=== PATIENT | male | born 1960 | race Caucasian/White ===

== ENCOUNTER 2019-09-25 11:12 | Emergency (ER) | payer MEDICARE ==
[~2019-09-25] VITALS: Ht 172.7 cm; Wt 151.6 kg
[2019-09-25 12:05] LABS: BASOPHILS # (AUTO) 0.1 X10'3 (0-0.2); BASOPHILS % (AUTO) 1.4 % (0-1); EOSINOPHILS # (AUTO) 0.2 X10'3 (0-0.9); EOSINOPHILS % (AUTO) 3.6 % (0-6); HEMATOCRIT 43.5 % (42.0-52.0); HEMOGLOBIN 14.1 g/dl (14.0-17.9); LYMPHOCYTES # (AUTO) 1.2 X10'3 (1.1-4.8); LYMPHOCYTES % (AUTO) 23.6 % (21-51); MEAN CORPUSCULAR HEMOGLOBIN 30.5 PG (27.0-31.0); MEAN CORPUSCULAR HGB CONC 32.5 g/dL (33.0-36.5); MEAN CORPUSCULAR VOLUME 93.8 FL (78-98); MEAN PLATELET VOLUME 8.2 FL (7.4-10.4); MONOCYTES # (AUTO) 0.6 X10'3 (0-0.9); MONOCYTES % (AUTO) 10.7 % (2-12); NEUTROPHILS # (AUTO) 3.2 X10'3 (1.8-7.7); NEUTROPHILS % (AUTO) 60.7 % (42-75); PLATELET COUNT 255 X10'3 (140-440); RED BLOOD COUNT 4.63 X10'6 (4.70-6.10); RED CELL DISTRIBUTION WIDTH 17.1 % (11.5-14.5); WHITE BLOOD COUNT 5.2 X10'3 (4.5-11.0)
[2019-09-25 12:24] LABS: ALANINE AMINOTRANSFERASE 12 U/L (12-78); ALBUMIN 3.7 G/DL (3.4-5.0); ALBUMIN/GLOBULIN RATIO 0.9 (1.1-1.5); ALKALINE PHOSPHATASE 132 IU/L (46-116); ANION GAP 10 (8-16); ASPARTATE AMINO TRANSFERASE 20 U/L (10-37); BILIRUBIN,TOTAL 2.1 MG/DL (0.1-1.0); BLOOD UREA NITROGEN 15 MG/DL (7-18); BUN/CREATININE RATIO 11.1 (5.4-32.0); CALCIUM 9.1 MG/DL (8.5-10.1); CHLORIDE 104 MMOL/L (99-107); CREATININE 1.35 MG/DL (0.60-1.10); GLUCOSE 93 MG/DL (70-104); POTASSIUM 4.1 MMOL/L (3.5-5.1); SODIUM 139 MMOL/L (135-145); TOTAL CARBON DIOXIDE 25.2 MMOL/L (24-32); TOTAL PROTEIN 7.7 G/DL (6.4-8.2); eGFR 54 ML/MIN
[2019-09-25 12:28] LABS: LIPASE 142 U/L (73-393)
[2019-09-25 12:29] LABS: CLARITY,URINE CLEAR (Clear); COLOR,URINE YELLOW (Yellow); GLUCOSE, URINE NEGATIVE (Neg); KETONES,URINE NEGATIVE (Neg); LEUKOCYTE ESTERASE ,URINE NEGATIVE (Neg); NITRITES, URINE NEGATIVE (Neg); OCCULT BLOOD,URINE NEGATIVE (Neg); PROTEIN,URINE NEGATIVE (Neg)
[2019-09-25 12:30] LABS: UA COLLECTION TYPE URINAL
[2019-09-25] MEDS ORDERED: albumin (human) 25% 100 ML IV solution IV ONE (12:50)
[2019-09-25] MEDS ORDERED: furosemide 10 MG/1 ML 10ml inj IV ONE (13:45)
[2019-09-25 14:41] VITALS: BP 120/89
[2019-09-25 14:55] LABS: ALBUMIN,BODY FLUID 2.3 G/DL; LDH,BODY FLUID 79 U/L; TOTAL PROTEIN,BODY FLUID 3.9 G/DL
[2019-09-25 15:08] LABS: BF MESOTHELIAL CELLS FEW; BF RBC COUNT 130 /CU MM; BF WBC COUNT 360 /CU MM (0-1000); BFAPPEAR CLEAR; BFCOLOR YELLOW; BFVOLUME 65 ML; EOSINOPHILS,BODY FLUID 1 %; LYMPHOCYTES,BODY FLUID 55 %; MONOCYTES,BODY FLUID 8 %; NEUTROPHILS,BODY FLUID 36 %
== END 2019-09-25 15:51 | disposition home or self-care (01) ==
LOC: ER 11:12
DX: R18.8 Other ascites (principal); I10 Essential (primary) hypertension; E11.9 Type 2 diabetes mellitus without complications; Z72.89 Other problems related to lifestyle; Z88.8 Allergy status to other drugs, medicaments and biological substances
CPT/HCPCS: 36415; 49083; 80053; 81003; 82042; 83615; 83690; 83880; 84157; 84484; 85025; 85610; 87070; 89051; 96365; 96375; 99285; J1940; P9047

== ENCOUNTER 2020-02-25 07:29 | Day surgery (SDC) | payer MEDICARE ==
[~2020-02-25] VITALS: Ht 172.7 cm; Wt 128.3 kg
[2020-02-25] VITALS (11 sets, daily range): BP systolic 93–111; BP diastolic 56–73
[2020-02-25] MEDS ORDERED: GLIP-20 PO (09:09)
[2020-02-25] MEDS ORDERED: AMLO2.5T2 PO (09:09)
[2020-02-25] MEDS ORDERED: SILD20TA PO (09:10)
[2020-02-25] MEDS ORDERED: METF500T PO (09:12)
[2020-02-25] MEDS ORDERED: FURO40TA4 PO (09:14)
[2020-02-25] MEDS ORDERED: SPIR25TA5 PO (09:14)
[2020-02-25] MEDS ORDERED: FURO-150 PO (09:16)
[2020-02-25] MEDS: albumin 25% 100mL bottle x 1 IV PRN ×3 (09:37→11:01)
[2020-02-25 11:08] LABS: GLUCOSE,BODY FLUID 92 MG/DL; LDH,BODY FLUID 123 U/L; TOTAL PROTEIN,BODY FLUID 4.8 G/DL
[2020-02-25 11:50] LABS: BFAPPEAR CLEAR
[2020-02-25 11:51] LABS: BF MESOTHELIAL CELLS FEW; BF RBC COUNT 219 /CU MM; BF WBC COUNT 274 /CU MM (0-1000); BFCOLOR YELLOW; BFVOLUME 50 ML; LYMPHOCYTES,BODY FLUID 62 %; MONOCYTES,BODY FLUID 33 %; NEUTROPHILS,BODY FLUID 5 %
[2020-02-25 11:55] LABS: OTHER CELLS,BODY FLUID MACROPHAGES
== END 2020-02-25 11:40 | disposition home or self-care (01) ==
LOC: SSTAY O 07:29
PROVIDERS: ATTEND Radiology Vascular & Interventional Radiology
DX: R18.8 Other ascites (principal); I10 Essential (primary) hypertension; I27.20 Pulmonary hypertension, unspecified; E11.9 Type 2 diabetes mellitus without complications; Z72.89 Other problems related to lifestyle; Z88.8 Allergy status to other drugs, medicaments and biological substances; Z79.899 Other long term (current) drug therapy
CPT/HCPCS: 49083; 82945; 83615; 84157; 87070; 89051; P9047

== ENCOUNTER 2020-05-29 06:34 | Day surgery (SDC) | payer MEDICARE ==
[2020-05-29] VITALS (12 sets, daily range): BP systolic 79–136; BP diastolic 54–90
[~2020-05-29] VITALS: Ht 172.7 cm; Wt 129.7 kg
[~2020-05-29 06:34] MED LIST: AMLO2.5T2 PO; FURO-150 PO; FURO40TA4 PO; GLIP-20 PO; METF500T PO; SILD20TA PO; SPIR25TA5 PO
[2020-05-29] MEDS: albumin 25% 100mL bottle x 1 IV PRN ×4 (08:42→10:54)
== END 2020-05-29 12:15 | disposition home or self-care (01) ==
LOC: SSTAY O 06:34
PROVIDERS: ATTEND Radiology Diagnostic Radiology
DX: R18.8 Other ascites (principal); I10 Essential (primary) hypertension; E11.9 Type 2 diabetes mellitus without complications; I27.20 Pulmonary hypertension, unspecified; G47.33 Obstructive sleep apnea (adult) (pediatric); Z72.89 Other problems related to lifestyle; Z88.8 Allergy status to other drugs, medicaments and biological substances; Z79.899 Other long term (current) drug therapy; Z79.84 Long term (current) use of oral hypoglycemic drugs
CPT/HCPCS: 49083; P9047

== ENCOUNTER 2020-06-15 06:54 | Day surgery (SDC) | payer MEDICARE ==
[2020-06-15] VITALS (17 sets, daily range): BP systolic 81–127; BP diastolic 50–76
[~2020-06-15] VITALS: Ht 172.7 cm; Wt 124.2 kg
[2020-06-15] MEDS: albumin 25% 100mL bottle x 1 IV PRN ×4 (08:50→10:04)
== END 2020-06-15 12:17 | disposition home or self-care (01) ==
LOC: SSTAY O 06:54
PROVIDERS: ATTEND Radiology Vascular & Interventional Radiology
DX: R18.8 Other ascites (principal); I10 Essential (primary) hypertension; I27.20 Pulmonary hypertension, unspecified; E11.9 Type 2 diabetes mellitus without complications; Z72.89 Other problems related to lifestyle; Z88.8 Allergy status to other drugs, medicaments and biological substances; Z91.013 Allergy to seafood; Z79.899 Other long term (current) drug therapy; Z79.84 Long term (current) use of oral hypoglycemic drugs
CPT/HCPCS: 49083; P9047

== ENCOUNTER 2020-07-16 06:15 | Day surgery (SDC) | payer MEDICARE ==
[2020-07-16] VITALS (15 sets, daily range): BP systolic 92–131; BP diastolic 55–93
[~2020-07-16] VITALS: Ht 172.7 cm; Wt 115.9 kg
[~2020-07-16 06:15] MED LIST changes: -GLIP-20 PO; -METF500T PO
[2020-07-16] MEDS: albumin 25% 100mL bottle x 1 IV PRN ×4 (08:40→11:00)
== END 2020-07-16 12:00 | disposition home or self-care (01) ==
LOC: SSTAY O 06:15
PROVIDERS: ATTEND Radiology Vascular & Interventional Radiology
DX: R18.8 Other ascites (principal); R14.0 Abdominal distension (gaseous); E11.9 Type 2 diabetes mellitus without complications; I27.20 Pulmonary hypertension, unspecified; I10 Essential (primary) hypertension; Z72.89 Other problems related to lifestyle; Z88.8 Allergy status to other drugs, medicaments and biological substances; Z91.013 Allergy to seafood; Z79.899 Other long term (current) drug therapy
CPT/HCPCS: 49083; P9047

== ENCOUNTER 2020-08-19 07:14 | Day surgery (SDC) | payer MEDICARE ==
[2020-08-19] VITALS (10 sets, daily range): BP systolic 94–122; BP diastolic 52–93
[~2020-08-19] VITALS: Ht 175.3 cm; Wt 121.6 kg
[2020-08-19] MEDS ORDERED: normal saline 1000ml 1,000 ML IV PRN (07:30)
[2020-08-19] MEDS: albumin 25% 100mL bottle x 1 IV PRN ×3 (08:56→10:34)
== END 2020-08-19 11:30 | disposition home or self-care (01) ==
LOC: SSTAY O 07:14
PROVIDERS: ATTEND Radiology Vascular & Interventional Radiology
DX: R18.8 Other ascites (principal); I27.20 Pulmonary hypertension, unspecified; E11.9 Type 2 diabetes mellitus without complications; Z88.8 Allergy status to other drugs, medicaments and biological substances; Z91.013 Allergy to seafood; Z79.899 Other long term (current) drug therapy
CPT/HCPCS: 49083; P9047

== ENCOUNTER 2020-10-05 06:25 | Day surgery (SDC) | payer MEDICARE ==
[~2020-10-05] VITALS: Ht 172.7 cm; Wt 115.8 kg
[2020-10-05] VITALS (12 sets, daily range): BP systolic 87–101; BP diastolic 60–79
[2020-10-05] MEDS ORDERED: BUME1TAB8 PO (06:51)
[2020-10-05] MEDS ORDERED: POTA20PA40 PO (06:51)
[2020-10-05] MEDS ORDERED: REMODULIN CONTINF (06:51)
[2020-10-05] MEDS: albumin 25% 100mL bottle x 1 IV PRN ×3 (08:29→10:20)
== END 2020-10-05 11:05 | disposition home or self-care (01) ==
LOC: SSTAY O 06:25
PROVIDERS: ATTEND Preventive Medicine Aerospace Medicine
DX: R18.8 Other ascites (principal); I10 Essential (primary) hypertension; E11.9 Type 2 diabetes mellitus without complications; I27.20 Pulmonary hypertension, unspecified; Z72.89 Other problems related to lifestyle; Z88.8 Allergy status to other drugs, medicaments and biological substances; Z79.899 Other long term (current) drug therapy
CPT/HCPCS: 49083; P9047

== ENCOUNTER 2020-11-16 06:13 | Day surgery (SDC) | payer MEDICARE, SELFPAY ==
[2020-11-16] VITALS (13 sets, daily range): BP systolic 75–111; BP diastolic 39–76
[~2020-11-16] VITALS: Ht 172.7 cm; Wt 116.3 kg
[~2020-11-16 06:13] MED LIST changes: +BUME1TAB8 PO; -FURO-150 PO; -FURO40TA4 PO; +POTA20PA40 PO; +REMODULIN CONTINF
[2020-11-16] MEDS: albumin 25% 100mL bottle x 1 IV PRN ×4 (08:36→10:20)
== END 2020-11-16 11:06 | disposition home or self-care (01) ==
LOC: SSTAY O 06:13
PROVIDERS: ATTEND Preventive Medicine Aerospace Medicine
DX: R18.8 Other ascites (principal); R14.0 Abdominal distension (gaseous); I10 Essential (primary) hypertension; E11.9 Type 2 diabetes mellitus without complications; I27.20 Pulmonary hypertension, unspecified; Z72.89 Other problems related to lifestyle; Z88.8 Allergy status to other drugs, medicaments and biological substances; Z79.899 Other long term (current) drug therapy
CPT/HCPCS: 49083; P9047

== ENCOUNTER 2020-12-04 05:55 | Day surgery (SDC) | payer MEDICARE, SELFPAY ==
[~2020-12-04] VITALS: Ht 172.7 cm; Wt 288.0 kg
[2020-12-04] VITALS (13 sets, daily range): BP systolic 79–101; BP diastolic 48–68
[2020-12-04] MEDS ORDERED: normal saline 1000ml 1,000 ML IV PRN (06:10)
[2020-12-04] MEDS: albumin 25% 100mL bottle x 1 IV PRN ×3 (08:38→08:46)
== END 2020-12-04 11:20 | disposition home or self-care (01) ==
LOC: SSTAY O 05:55
PROVIDERS: ATTEND Radiology Vascular & Interventional Radiology
DX: R18.8 Other ascites (principal); R14.0 Abdominal distension (gaseous); I10 Essential (primary) hypertension; I27.20 Pulmonary hypertension, unspecified; E11.9 Type 2 diabetes mellitus without complications; Z72.89 Other problems related to lifestyle; Z79.899 Other long term (current) drug therapy
CPT/HCPCS: 49083; P9047

== ENCOUNTER 2020-12-28 06:07 | Day surgery (SDC) | payer MEDICARE, SELFPAY ==
[~2020-12-28] VITALS: Ht 172.7 cm; Wt 121.2 kg
[2020-12-28] VITALS (13 sets, daily range): BP systolic 78–108; BP diastolic 39–75
[2020-12-28] MEDS ORDERED: LIDOcaine 1% 30ml preserv. free vial SQ STA (06:17)
[2020-12-28] MEDS: albumin 25% 100mL bottle x 1 IV PRN ×4 (08:54→11:33)
== END 2020-12-28 12:05 | disposition home or self-care (01) ==
LOC: SSTAY O 06:07
PROVIDERS: ATTEND Radiology Diagnostic Radiology
DX: R18.8 Other ascites (principal); R14.0 Abdominal distension (gaseous); I10 Essential (primary) hypertension; I27.20 Pulmonary hypertension, unspecified; E11.9 Type 2 diabetes mellitus without complications; Z72.89 Other problems related to lifestyle; Z88.8 Allergy status to other drugs, medicaments and biological substances; Z79.899 Other long term (current) drug therapy
CPT/HCPCS: 49083; J2001; P9047

== ENCOUNTER 2021-01-18 06:29 | Day surgery (SDC) | payer MEDICARE, SELFPAY ==
[~2021-01-18] VITALS: Ht 172.7 cm; Wt 117.4 kg
[2021-01-18] VITALS (10 sets, daily range): BP systolic 93–106; BP diastolic 62–72
[2021-01-18] MEDS ORDERED: LIDOcaine 1% 30ml preserv. free vial SQ STA (06:38)
[2021-01-18] MEDS: albumin 25% 100mL bottle x 1 IV PRN ×3 (09:03→10:12)
== END 2021-01-18 11:05 | disposition home or self-care (01) ==
LOC: SSTAY O 06:29
PROVIDERS: ATTEND Preventive Medicine Aerospace Medicine
DX: R18.8 Other ascites (principal); R14.0 Abdominal distension (gaseous); E11.9 Type 2 diabetes mellitus without complications; I10 Essential (primary) hypertension; I27.20 Pulmonary hypertension, unspecified; Z72.89 Other problems related to lifestyle; Z88.8 Allergy status to other drugs, medicaments and biological substances; Z91.013 Allergy to seafood; Z79.899 Other long term (current) drug therapy
CPT/HCPCS: 49083; J3490; P9047

== ENCOUNTER 2021-02-08 06:45 | Day surgery (SDC) | payer MEDICARE, SELFPAY ==
[2021-02-08] VITALS (7 sets, daily range): BP systolic 89–107; BP diastolic 63–70
[~2021-02-08] VITALS: Ht 172.7 cm; Wt 119.3 kg
[2021-02-08] MEDS ORDERED: LIDOcaine 1% 30ml preserv. free vial SQ STA (06:56)
[2021-02-08] MEDS ORDERED: RIOC0.5T PO (07:08)
[2021-02-08] MEDS: albumin 25% 100mL bottle x 1 IV PRN ×5 (08:30→10:01)
== END 2021-02-08 10:58 | disposition home or self-care (01) ==
LOC: SSTAY O 06:45
PROVIDERS: ATTEND Radiology Vascular & Interventional Radiology
DX: R18.8 Other ascites (principal); R14.0 Abdominal distension (gaseous); I27.20 Pulmonary hypertension, unspecified; I10 Essential (primary) hypertension; E11.9 Type 2 diabetes mellitus without complications; Z72.89 Other problems related to lifestyle; Z88.8 Allergy status to other drugs, medicaments and biological substances; Z79.899 Other long term (current) drug therapy
CPT/HCPCS: 49083; P9047

== ENCOUNTER 2021-03-04 06:02 | Day surgery (SDC) | payer MEDICARE, SELFPAY ==
[~2021-03-04] VITALS: Ht 172.7 cm; Wt 122.2 kg
[2021-03-04] VITALS (19 sets, daily range): BP systolic 64–126; BP diastolic 36–72
[~2021-03-04 06:02] MED LIST changes: +RIOC0.5T PO; -SILD20TA PO
[2021-03-04] MEDS ORDERED: SPIR50TA5 PO (07:38)
[2021-03-04] MEDS ORDERED: RIOC1TAB PO (07:38)
[2021-03-04] MEDS ORDERED: TREP10VI IV (07:38)
[2021-03-04] MEDS: albumin 25% 100mL bottle x 1 IV PRN ×4 (09:29→10:32)
== END 2021-03-04 12:45 | disposition home or self-care (01) ==
LOC: SSTAY O 06:02
PROVIDERS: ATTEND Radiology Vascular & Interventional Radiology
DX: R18.8 Other ascites (principal); R14.0 Abdominal distension (gaseous); I10 Essential (primary) hypertension; I27.20 Pulmonary hypertension, unspecified; E11.9 Type 2 diabetes mellitus without complications; Z72.89 Other problems related to lifestyle; Z88.8 Allergy status to other drugs, medicaments and biological substances
CPT/HCPCS: 49083; P9047

== ENCOUNTER 2021-03-18 06:12 | Day surgery (SDC) | payer MEDICARE, SELFPAY ==
[2021-03-18] VITALS (10 sets, daily range): BP systolic 87–111; BP diastolic 59–76
[~2021-03-18] VITALS: Ht 172.7 cm; Wt 121.0 kg
[~2021-03-18 06:12] MED LIST changes: -REMODULIN CONTINF; -RIOC0.5T PO; +RIOC1TAB PO; -SPIR25TA5 PO; +SPIR50TA5 PO; +TREP10VI IV
[2021-03-18] MEDS ORDERED: adempas (06:27)
[2021-03-18] MEDS ORDERED: LIDOcaine 1% 30ml preserv. free vial SQ STA (06:30)
[2021-03-18] MEDS: albumin 25% 100mL bottle x 1 IV PRN ×3 (08:34→09:47)
== END 2021-03-18 10:30 | disposition home or self-care (01) ==
LOC: SSTAY O 06:12
PROVIDERS: ATTEND Radiology Vascular & Interventional Radiology
DX: R18.8 Other ascites (principal); R14.0 Abdominal distension (gaseous); I10 Essential (primary) hypertension; I27.20 Pulmonary hypertension, unspecified; E11.9 Type 2 diabetes mellitus without complications; Z72.89 Other problems related to lifestyle; Z79.899 Other long term (current) drug therapy
CPT/HCPCS: 49083; P9047

== ENCOUNTER 2021-04-06 05:59 | Day surgery (SDC) | payer MEDICARE, SELFPAY ==
[~2021-04-06] VITALS: Ht 172.7 cm; Wt 120.7 kg
[2021-04-06] VITALS (12 sets, daily range): BP systolic 81–110; BP diastolic 52–68
[~2021-04-06 05:59] MED LIST changes: -RIOC1TAB PO; +adempas
[2021-04-06] MEDS ORDERED: LIDOcaine 1% 30ml preserv. free vial SQ STA (06:19)
[2021-04-06] MEDS: albumin 25% 100mL bottle x 1 IV PRN ×4 (08:40→10:00)
--- NOTE | 2021-04-06 09:27 | NUR ---
Due to low BP SBP < 90, Laura DILLON gave instruction to run Albumin wide open and trendel patient. Was effective to maintain stable BP throughout procedure.
[2021-04-06] MEDS ORDERED: normal saline 500ml IV soln 500 ML IV ONE (11:30)
[2021-04-06] MEDS ORDERED: POTA-207 PO (13:08)
[2021-04-06] MEDS ORDERED: RIOC2.5T PO (13:08)
== END 2021-04-06 11:00 | disposition home or self-care (01) ==
LOC: SSTAY O 05:59
PROVIDERS: ATTEND Radiology Vascular & Interventional Radiology
DX: R18.8 Other ascites (principal); R14.0 Abdominal distension (gaseous); I10 Essential (primary) hypertension; I27.20 Pulmonary hypertension, unspecified; E11.9 Type 2 diabetes mellitus without complications; Z72.89 Other problems related to lifestyle; Z79.899 Other long term (current) drug therapy
CPT/HCPCS: 49083; J3490; J7040; P9047

== ENCOUNTER 2021-04-20 07:23 | Day surgery (SDC) | payer MEDICARE, SELFPAY ==
[2021-04-20] VITALS (13 sets, daily range): BP systolic 90–103; BP diastolic 56–71
[~2021-04-20] VITALS: Ht 172.7 cm; Wt 120.4 kg
[~2021-04-20 07:23] MED LIST changes: -AMLO2.5T2 PO; +POTA-207 PO; -POTA20PA40 PO; +RIOC2.5T PO; -TREP10VI IV; -adempas
[2021-04-20] MEDS ORDERED: LIDOcaine 1%/PF 5ML 10 MG/ML VIAL SQ ONE (07:30)
[2021-04-20] MEDS ORDERED: MIDO5TAB4 PO (07:48)
[2021-04-20] MEDS: albumin 25% 100mL bottle x 1 IV PRN ×3 (09:17→10:53)
== END 2021-04-20 11:25 | disposition home or self-care (01) ==
LOC: SSTAY O 07:23
PROVIDERS: ATTEND Radiology Vascular & Interventional Radiology
DX: R18.8 Other ascites (principal); R14.0 Abdominal distension (gaseous); I10 Essential (primary) hypertension; I27.0 Primary pulmonary hypertension; E11.9 Type 2 diabetes mellitus without complications; Z72.89 Other problems related to lifestyle; Z88.8 Allergy status to other drugs, medicaments and biological substances; Z79.899 Other long term (current) drug therapy
CPT/HCPCS: 49083; J3490; P9047

== ENCOUNTER 2021-05-04 06:47 | Day surgery (SDC) | payer MEDICARE, SELFPAY ==
[~2021-05-04] VITALS: Ht 170.2 cm; Wt 120.7 kg
[2021-05-04] VITALS (15 sets, daily range): BP systolic 78–103; BP diastolic 53–66
[~2021-05-04 06:47] MED LIST changes: +MIDO5TAB4 PO
[2021-05-04] MEDS ORDERED: TREP10VI CONTINF (07:16)
[2021-05-04] MEDS ORDERED: LIDOcaine 1%/PF 5ML 10 MG/ML VIAL SQ ONE (07:25)
[2021-05-04] MEDS: albumin 25% 100mL bottle x 1 IV PRN ×3 (08:37→09:51)
== END 2021-05-04 11:48 | disposition home or self-care (01) ==
LOC: SSTAY O 06:47
PROVIDERS: ATTEND Radiology Diagnostic Radiology
DX: R18.8 Other ascites (principal); R14.0 Abdominal distension (gaseous); I10 Essential (primary) hypertension; I27.20 Pulmonary hypertension, unspecified; E11.9 Type 2 diabetes mellitus without complications; Z72.89 Other problems related to lifestyle; Z79.899 Other long term (current) drug therapy
CPT/HCPCS: 49083; J3490; P9047

== ENCOUNTER 2021-05-18 06:25 | Day surgery (SDC) | payer MEDICARE, SELFPAY ==
[2021-05-18] VITALS (7 sets, daily range): BP systolic 87–100; BP diastolic 51–68
[~2021-05-18] VITALS: Ht 172.7 cm; Wt 117.6 kg
[~2021-05-18 06:25] MED LIST changes: +TREP10VI CONTINF
[2021-05-18] MEDS: albumin 25% 100mL bottle x 1 IV PRN ×3 (08:38→10:06)
== END 2021-05-18 10:40 | disposition home or self-care (01) ==
LOC: SSTAY O 06:25
PROVIDERS: ATTEND Radiology Vascular & Interventional Radiology
DX: R18.8 Other ascites (principal); R14.0 Abdominal distension (gaseous); E11.9 Type 2 diabetes mellitus without complications; I10 Essential (primary) hypertension; I27.20 Pulmonary hypertension, unspecified; Z72.89 Other problems related to lifestyle; Z88.8 Allergy status to other drugs, medicaments and biological substances; Z79.899 Other long term (current) drug therapy
CPT/HCPCS: 49083; P9047

== ENCOUNTER 2021-06-01 06:42 | Day surgery (SDC) | payer MEDICARE, SELFPAY ==
[2021-06-01] VITALS (11 sets, daily range): BP systolic 81–99; BP diastolic 55–72
[~2021-06-01] VITALS: Ht 172.7 cm; Wt 121.5 kg
[2021-06-01] MEDS ORDERED: LIDOcaine 1%/PF 5ML 10 MG/ML VIAL SQ ONE (07:00)
[2021-06-01] MEDS ORDERED: normal saline 1000ml 1,000 ML IV PRN (07:15)
[2021-06-01] MEDS: albumin 25% 100mL bottle x 1 IV PRN ×3 (09:08→09:56)
== END 2021-06-01 11:30 | disposition home or self-care (01) ==
LOC: SSTAY O 06:42
PROVIDERS: ATTEND Radiology Vascular & Interventional Radiology
DX: R18.8 Other ascites (principal); R14.0 Abdominal distension (gaseous); I10 Essential (primary) hypertension; I27.20 Pulmonary hypertension, unspecified; E11.9 Type 2 diabetes mellitus without complications; Z72.89 Other problems related to lifestyle; Z79.899 Other long term (current) drug therapy; Z88.8 Allergy status to other drugs, medicaments and biological substances
CPT/HCPCS: 49083; J3490; P9047

== ENCOUNTER 2021-06-15 06:45 | Day surgery (SDC) | payer MEDICARE, SELFPAY ==
[2021-06-15] VITALS (12 sets, daily range): BP systolic 77–103; BP diastolic 52–71
[~2021-06-15] VITALS: Ht 172.7 cm; Wt 120.7 kg
[2021-06-15] MEDS ORDERED: LIDOcaine 1%/PF 5ML 10 MG/ML VIAL SQ ONE (07:00)
[2021-06-15] MEDS ORDERED: normal saline 1000ml 1,000 ML IV PRN (07:05)
[2021-06-15] MEDS: albumin 25% 100mL bottle x 1 IV PRN ×2 (09:36→10:17)
== END 2021-06-15 11:05 | disposition home or self-care (01) ==
LOC: SSTAY O 06:45
PROVIDERS: ATTEND Radiology Vascular & Interventional Radiology
DX: R18.8 Other ascites (principal); R14.0 Abdominal distension (gaseous); I10 Essential (primary) hypertension; E11.9 Type 2 diabetes mellitus without complications; I27.20 Pulmonary hypertension, unspecified; Z72.89 Other problems related to lifestyle; Z79.899 Other long term (current) drug therapy
CPT/HCPCS: 49083; P9047

== ENCOUNTER 2021-06-29 06:42 | Day surgery (SDC) | payer MEDICARE, SELFPAY ==
[~2021-06-29] VITALS: Ht 172.7 cm; Wt 120.8 kg
[2021-06-29] VITALS (12 sets, daily range): BP systolic 81–95; BP diastolic 54–67
[2021-06-29] MEDS ORDERED: LIDOcaine 1%/PF 5ML 10 MG/ML VIAL SQ ONE (07:10)
[2021-06-29] MEDS: albumin 25% 100mL bottle x 1 IV PRN ×3 (07:22→09:11)
[2021-06-30] MEDS ORDERED: pneumococcal 23-VAL P-sac vacc 25 mcg/0.5ml vial IMVAC ONE (08:00)
== END 2021-06-29 11:00 | disposition home or self-care (01) ==
LOC: SSTAY O 06:42
PROVIDERS: ATTEND Radiology Diagnostic Radiology
DX: R18.8 Other ascites (principal); R14.0 Abdominal distension (gaseous); I27.20 Pulmonary hypertension, unspecified; E11.9 Type 2 diabetes mellitus without complications; I10 Essential (primary) hypertension; Z72.89 Other problems related to lifestyle; Z79.899 Other long term (current) drug therapy
CPT/HCPCS: 49083; J3490; P9047

== ENCOUNTER 2021-07-13 06:27 | Day surgery (SDC) | payer MEDICARE, SELFPAY ==
[~2021-07-13] VITALS: Ht 172.7 cm; Wt 122.6 kg
[2021-07-13] VITALS (9 sets, daily range): BP systolic 81–102; BP diastolic 55–68
[2021-07-13] MEDS ORDERED: normal saline 1000ml 1,000 ML IV PRN (06:50)
[2021-07-13] MEDS ORDERED: LIDOcaine 1%/PF 5ML 10 MG/ML VIAL SQ ONE (07:00)
[2021-07-13] MEDS: albumin 25% 100mL bottle x 1 IV PRN ×3 (09:24→10:38)
== END 2021-07-13 11:45 | disposition home or self-care (01) ==
LOC: SSTAY O 06:27
PROVIDERS: ATTEND Radiology Diagnostic Radiology
DX: R18.8 Other ascites (principal); I10 Essential (primary) hypertension; E11.9 Type 2 diabetes mellitus without complications; I27.20 Pulmonary hypertension, unspecified; Z72.89 Other problems related to lifestyle; Z79.899 Other long term (current) drug therapy
CPT/HCPCS: 49083; P9047

== ENCOUNTER 2021-07-26 05:47 | Day surgery (SDC) | payer MEDICARE, SELFPAY ==
[2021-07-26] VITALS (10 sets, daily range): BP systolic 83–106; BP diastolic 45–81
[~2021-07-26] VITALS: Ht 172.7 cm; Wt 122.4 kg
[2021-07-26] MEDS ORDERED: LIDOcaine 1%/PF 5ML 10 MG/ML VIAL SQ ONE (06:05)
[2021-07-26] MEDS: albumin 25% 100mL bottle x 1 IV PRN ×2 (07:57→07:58)
== END 2021-07-26 10:30 | disposition home or self-care (01) ==
LOC: SSTAY O 05:47
PROVIDERS: ATTEND Preventive Medicine Aerospace Medicine
DX: R18.8 Other ascites (principal); I10 Essential (primary) hypertension; I27.20 Pulmonary hypertension, unspecified; E11.9 Type 2 diabetes mellitus without complications; Z88.8 Allergy status to other drugs, medicaments and biological substances; Z72.89 Other problems related to lifestyle; Z79.899 Other long term (current) drug therapy
CPT/HCPCS: 49083; J3490; P9047; Z7610; A6258; A6449

== ENCOUNTER 2021-07-28 05:49 | Day surgery (SDC) | payer MEDICARE, SELFPAY ==
[~2021-07-28] VITALS: Ht 172.7 cm; Wt 100.9 kg
[2021-07-28 06:35] VITALS: BP 92/65
[2021-07-28] MEDS ORDERED: MIDAZolam 1 MG/ML 5ML VIAL ONE (06:42)
[2021-07-28] MEDS ORDERED: fentaNYL/PF 50MCG/1 ML 2ML syringe ONE (06:42)
[2021-07-28 07:50] VITALS: BP 89/58
[2021-07-28 08:00] VITALS: BP 91/58
[2021-07-28 08:10] VITALS: BP 83/67
[2021-07-28 08:20] VITALS: BP 80/58
== END 2021-07-28 08:40 | disposition home or self-care (01) ==
LOC: GI LAB 05:49
PROVIDERS: ATTEND Internal Medicine Gastroenterology
DX: Z12.11 Encounter for screening for malignant neoplasm of colon (principal); D12.2 Benign neoplasm of ascending colon; D12.3 Benign neoplasm of transverse colon; D12.4 Benign neoplasm of descending colon; I27.0 Primary pulmonary hypertension; Z72.89 Other problems related to lifestyle; Z88.8 Allergy status to other drugs, medicaments and biological substances; Z79.899 Other long term (current) drug therapy
CPT/HCPCS: 45385; 88305; C1773; G0500; J2250; J3010; J7030; Z7512; 99152; A4620

== ENCOUNTER 2021-08-02 08:14 | Outpatient (CLI) | payer MEDICARE, SELFPAY ==
[~2021-08-02 08:14] MED LIST changes: -MIDO5TAB4 PO
== END 2021-08-02 23:59 | disposition home or self-care (01) ==
LOC: VAS 08:14
PROVIDERS: ATTEND Internal Medicine
DX: I27.20 Pulmonary hypertension, unspecified (principal)
CPT/HCPCS: 93975

== ENCOUNTER 2021-08-09 06:14 | Day surgery (SDC) | payer MEDICARE, SELFPAY ==
[~2021-08-09] VITALS: Ht 172.7 cm; Wt 119.9 kg
[2021-08-09] VITALS (10 sets, daily range): BP systolic 86–113; BP diastolic 54–73
[2021-08-09] MEDS ORDERED: LIDOcaine 1%/PF 5ML 10 MG/ML VIAL SQ ONE (06:20)
[2021-08-09] MEDS: albumin 25% 100mL bottle x 1 IV PRN ×2 (08:56→08:57)
== END 2021-08-09 10:55 | disposition home or self-care (01) ==
LOC: SSTAY O 06:14
PROVIDERS: ATTEND Radiology Vascular & Interventional Radiology
DX: R18.8 Other ascites (principal); R14.0 Abdominal distension (gaseous); I27.21 Secondary pulmonary arterial hypertension; I10 Essential (primary) hypertension; E11.9 Type 2 diabetes mellitus without complications; Z72.89 Other problems related to lifestyle; Z88.8 Allergy status to other drugs, medicaments and biological substances; Z91.013 Allergy to seafood; Z79.899 Other long term (current) drug therapy
CPT/HCPCS: 49083; J3490; P9047; Z7610; A6258; A6449

== ENCOUNTER 2021-08-24 08:05 | Day surgery (SDC) | payer MEDICARE, SELFPAY ==
[~2021-08-24] VITALS: Ht 172.7 cm; Wt 123.6 kg
[2021-08-24] VITALS (10 sets, daily range): BP systolic 82–114; BP diastolic 55–74
[~2021-08-24 08:05] MED LIST changes: +LIDOcaine 1% 30ml preserv. free vial SQ STA
[2021-08-24] MEDS: albumin 25% 100mL bottle x 1 IV PRN ×3 (10:03→11:09)
== END 2021-08-24 12:00 | disposition home or self-care (01) ==
LOC: SSTAY O 08:05
PROVIDERS: ATTEND Preventive Medicine Aerospace Medicine
DX: R18.8 Other ascites (principal); Z79.899 Other long term (current) drug therapy; Z91.041 Radiographic dye allergy status; Z91.013 Allergy to seafood
CPT/HCPCS: 49083; J3490; J7030; P9047; Z7610; A6258; A6402; A6449

== ENCOUNTER 2021-09-01 06:46 | Day surgery (SDC) | payer MEDICARE, SELFPAY ==
[2021-09-01] VITALS (9 sets, daily range): BP systolic 86–111; BP diastolic 38–70
[~2021-09-01] VITALS: Ht 172.7 cm; Wt 115.4 kg
[~2021-09-01 06:46] MED LIST changes: -LIDOcaine 1% 30ml preserv. free vial SQ STA
[2021-09-01] MEDS ORDERED: LIDOcaine 1%/PF 5ML 10 MG/ML VIAL SQ ONE (07:20)
[2021-09-01] MEDS: albumin 25% 100mL bottle x 1 IV PRN ×2 (10:10→11:04)
== END 2021-09-01 11:50 | disposition home or self-care (01) ==
LOC: SSTAY O 06:46
PROVIDERS: ATTEND Preventive Medicine Aerospace Medicine
DX: R18.8 Other ascites (principal); Z91.041 Radiographic dye allergy status; Z91.013 Allergy to seafood; Z79.899 Other long term (current) drug therapy
CPT/HCPCS: 49083; J3490; P9047; A6258; A6402

== ENCOUNTER 2021-09-16 06:11 | Day surgery (SDC) | payer MEDICARE, SELFPAY ==
[~2021-09-16] VITALS: Ht 172.7 cm; Wt 126.4 kg
[2021-09-16] VITALS (11 sets, daily range): BP systolic 88–114; BP diastolic 59–83
[2021-09-16] MEDS ORDERED: MIDO5TAB4 PO (06:35)
[2021-09-16] MEDS ORDERED: LIDOcaine 1%/PF 5ML 10 MG/ML VIAL IJ ONE (07:00)
[2021-09-16] MEDS: albumin 25% 100mL bottle x 1 IV PRN ×4 (09:03→11:00)
== END 2021-09-16 11:40 | disposition home or self-care (01) ==
LOC: SSTAY O 06:11
PROVIDERS: ATTEND Radiology Vascular & Interventional Radiology
DX: R18.8 Other ascites (principal); Z79.899 Other long term (current) drug therapy; Z91.041 Radiographic dye allergy status; I27.21 Secondary pulmonary arterial hypertension; Z91.013 Allergy to seafood
CPT/HCPCS: 49083; J3490; P9047; A6258; A6449

== ENCOUNTER 2021-10-08 06:12 | Day surgery (SDC) | payer MEDICARE, SELFPAY ==
[2021-10-08] VITALS (7 sets, daily range): BP systolic 91–106; BP diastolic 62–78
[~2021-10-08] VITALS: Ht 172.7 cm; Wt 126.0 kg
[~2021-10-08 06:12] MED LIST changes: +MIDO5TAB4 PO
[2021-10-08] MEDS ORDERED: LIDOcaine 1%/PF 5ML 10 MG/ML VIAL SQ ONE (06:25)
[2021-10-08] MEDS ORDERED: fentaNYL/PF 50MCG/1 ML 2ML syringe ONE (08:24)
[2021-10-08] MEDS ORDERED: LIDOcaine 1%/PF 5ML 10 MG/ML VIAL ONE (08:24)
[2021-10-08] MEDS ORDERED: midazolam 1 mg/ML 2ml injection ONE (08:24)
[2021-10-08] MEDS ORDERED: iohexol 300 MG/1 ML 10ml vial ONE (08:24)
[2021-10-08] MEDS: albumin 25% 100mL bottle x 1 IV PRN ×2 (08:26→09:06)
== END 2021-10-08 09:45 | disposition home or self-care (01) ==
LOC: SSTAY O 06:12
PROVIDERS: ATTEND Preventive Medicine Aerospace Medicine
DX: R18.8 Other ascites (principal); I27.21 Secondary pulmonary arterial hypertension; I10 Essential (primary) hypertension; E11.9 Type 2 diabetes mellitus without complications; Z72.89 Other problems related to lifestyle; Z79.899 Other long term (current) drug therapy
CPT/HCPCS: 49083; J2250; J3010; J3490; P9047; Q9967; A4620; A6258; A6449

== ENCOUNTER 2021-10-21 06:36 | Day surgery (SDC) | payer MEDICARE, SELFPAY ==
[2021-10-21] VITALS (8 sets, daily range): BP systolic 94–119; BP diastolic 46–95
[~2021-10-21] VITALS: Ht 172.7 cm; Wt 55.5 kg
[2021-10-21] MEDS: albumin 25% 100mL bottle x 1 IV PRN ×3 (08:45→10:20)
== END 2021-10-21 11:20 | disposition home or self-care (01) ==
LOC: SSTAY O 06:36
PROVIDERS: ATTEND Radiology Vascular & Interventional Radiology
DX: R18.8 Other ascites (principal); I10 Essential (primary) hypertension; E11.9 Type 2 diabetes mellitus without complications; I27.20 Pulmonary hypertension, unspecified; Z72.89 Other problems related to lifestyle; Z79.899 Other long term (current) drug therapy; Z98.890 Other specified postprocedural states
CPT/HCPCS: 49083; P9047; A6258

== ENCOUNTER 2021-11-12 06:13 | Day surgery (SDC) | payer MEDICARE, SELFPAY ==
[~2021-11-12] VITALS: Ht 172.7 cm; Wt 108.4 kg
[2021-11-12] MEDS ORDERED: LIDOcaine 1%/PF 5ML 10 MG/ML VIAL SQ ONE (06:35)
[2021-11-12] MEDS ORDERED: albumin 25% 100mL bottle x 1 IV PRN (06:40)
[2021-11-12] MEDS ORDERED: METO-395 PO (06:44)
[2021-11-12 07:37] VITALS: BP 91/58
== END 2021-11-12 08:25 | disposition home or self-care (01) ==
LOC: SSTAY O 06:13
PROVIDERS: ATTEND Radiology Vascular & Interventional Radiology
DX: R18.8 Other ascites (principal); Z53.8 Procedure and treatment not carried out for other reasons; I10 Essential (primary) hypertension; E11.9 Type 2 diabetes mellitus without complications; I27.20 Pulmonary hypertension, unspecified; Z79.899 Other long term (current) drug therapy; Z98.890 Other specified postprocedural states
CPT/HCPCS: J3490; P9047; A6258

== ENCOUNTER 2021-11-22 06:46 | Day surgery (SDC) | payer MEDICARE, SELFPAY ==
[~2021-11-22] VITALS: Ht 172.7 cm; Wt 122.0 kg
[2021-11-22] VITALS (11 sets, daily range): BP systolic 85–103; BP diastolic 55–100
[~2021-11-22 06:46] MED LIST changes: +METO-395 PO
[2021-11-22] MEDS ORDERED: LIDOcaine 1%/PF 5ML 10 MG/ML VIAL SQ ONE (07:10)
[2021-11-22] MEDS ORDERED: LIDOcaine 1% 30ml preserv. free vial SQ STA (07:37)
[2021-11-22] MEDS: albumin 25% 100mL bottle x 1 IV PRN ×4 (08:59→09:56)
== END 2021-11-22 11:10 | disposition home or self-care (01) ==
LOC: SSTAY O 06:46
PROVIDERS: ATTEND Radiology Vascular & Interventional Radiology
DX: R18.8 Other ascites (principal); I27.21 Secondary pulmonary arterial hypertension; I10 Essential (primary) hypertension; E11.9 Type 2 diabetes mellitus without complications; Z72.89 Other problems related to lifestyle; Z79.899 Other long term (current) drug therapy; Z98.890 Other specified postprocedural states
CPT/HCPCS: 49083; A6223; P9047; A6258; A6449

== ENCOUNTER 2021-12-03 07:40 | Day surgery (SDC) | payer MEDICARE, SELFPAY ==
[~2021-12-03] VITALS: Ht 172.7 cm; Wt 121.6 kg
[2021-12-03] VITALS (8 sets, daily range): BP systolic 88–106; BP diastolic 56–69
[~2021-12-03 07:40] MED LIST changes: -METO-395 PO
[2021-12-03] MEDS ORDERED: LIDOcaine 1% 30ml preserv. free vial SQ STA (07:51)
[2021-12-03] MEDS: albumin 25% 100mL bottle x 1 IV PRN ×3 (08:41→09:28)
== END 2021-12-03 09:56 | disposition home or self-care (01) ==
LOC: SSTAY O 07:40
PROVIDERS: ATTEND Radiology Vascular & Interventional Radiology
DX: R18.8 Other ascites (principal); I27.21 Secondary pulmonary arterial hypertension; I10 Essential (primary) hypertension; E11.9 Type 2 diabetes mellitus without complications; Z72.89 Other problems related to lifestyle; Z91.013 Allergy to seafood; Z91.041 Radiographic dye allergy status; Z79.899 Other long term (current) drug therapy; Z98.890 Other specified postprocedural states
CPT/HCPCS: 49083; A6223; J3490; P9047; A6258; A6449; C1729

== ENCOUNTER 2021-12-07 12:34 | Day surgery (SDC) | payer MEDICARE, SELFPAY ==
[2021-11-25 11:40] LABS: BASOPHILS # (AUTO) 0.1 X10'3 (0-0.2); BASOPHILS % (AUTO) 1.4 % (0-1); EOSINOPHILS # (AUTO) 0.4 X10'3 (0-0.9); EOSINOPHILS % (AUTO) 5.1 % (0-6); HEMATOCRIT 37.5 % (42.0-52.0); HEMOGLOBIN 12.3 g/dl (14.0-17.9); LYMPHOCYTES # (AUTO) 0.3 X10'3 (1.1-4.8); LYMPHOCYTES % (AUTO) 3.9 % (21-51); MEAN CORPUSCULAR HEMOGLOBIN 28.8 PG (27.0-31.0); MEAN CORPUSCULAR HGB CONC 32.9 g/dL (33.0-36.5); MEAN CORPUSCULAR VOLUME 87.7 FL (78-98); MEAN PLATELET VOLUME 8.6 FL (7.4-10.4); MONOCYTES # (AUTO) 0.4 X10'3 (0-0.9); MONOCYTES % (AUTO) 6.1 % (2-12); NEUTROPHILS # (AUTO) 5.9 X10'3 (1.8-7.7); NEUTROPHILS % (AUTO) 83.5 % (42-75); PLATELET COUNT 150 X10'3 (140-440); RED BLOOD COUNT 4.28 X10'6 (4.70-6.10); RED CELL DISTRIBUTION WIDTH 15.5 % (11.5-14.5); WHITE BLOOD COUNT 7.1 X10'3 (4.5-11.0)
[2021-11-25 11:52] LABS: APTT 29 SECONDS (22-32)
[2021-11-25 12:21] LABS: ALBUMIN 3.3 G/DL (3.4-5.0); ANION GAP 8 (8-16); BLOOD UREA NITROGEN 32 MG/DL (7-18); BUN/CREATININE RATIO 19.9 (5.4-32.0); CALCIUM 7.9 MG/DL (8.5-10.1); CHLORIDE 98 MMOL/L (99-107); CHOL/HDL RATIO 2.2 (0.00-4.99); CHOLESTEROL 115 MG/DL (0-200); CREATININE 1.61 MG/DL (0.60-1.10); GLUCOSE 105 MG/DL (70-104); HDL CHOLESTEROL 53 MG/DL (35-60); LDL CHOLESTEROL 51 MG/DL (50-100); POTASSIUM 4.3 MMOL/L (3.5-5.1); SODIUM 129 MMOL/L (135-145); TOTAL CARBON DIOXIDE 22.7 MMOL/L (24-32); TRIGLYCERIDES 50 MG/DL (20-135); eGFR 44 ML/MIN
[~2021-12-07] VITALS: Ht 172.7 cm; Wt 113.6 kg
[2021-12-07] MEDS ORDERED: normal saline 1,000 ML IV SCH (12:55)
[2021-12-07] MEDS ORDERED: LORazepam 0.5 MG tablet PO PRN (12:55)
[2021-12-07] MEDS ORDERED: diphenhydrAMINE 25mg capsule PO PRN (12:55)
[2021-12-07] MEDS ORDERED: PRED20TA PO (13:03)
[2021-12-07] MEDS ORDERED: DIPH-1055 PO (13:03)
[2021-12-07 13:10] VITALS: BP 100/74
[2021-12-07 13:45] LABS: BASOPHILS % (AUTO) 0.3 % (0-1); EOSINOPHILS % (AUTO) 0.1 % (0-6); HEMATOCRIT 37.3 % (42.0-52.0); HEMOGLOBIN 12.3 g/dl (14.0-17.9); LYMPHOCYTES # (AUTO) 0.2 X10'3 (1.1-4.8); LYMPHOCYTES % (AUTO) 2.2 % (21-51); MEAN CORPUSCULAR HEMOGLOBIN 28.7 PG (27.0-31.0); MEAN CORPUSCULAR HGB CONC 32.9 g/dL (33.0-36.5); MEAN CORPUSCULAR VOLUME 87.4 FL (78-98); MEAN PLATELET VOLUME 7.6 FL (7.4-10.4); MONOCYTES # (AUTO) 0.2 X10'3 (0-0.9); MONOCYTES % (AUTO) 1.9 % (2-12); NEUTROPHILS # (AUTO) 8.3 X10'3 (1.8-7.7); NEUTROPHILS % (AUTO) 95.5 % (42-75); PLATELET COUNT 240 X10'3 (140-440); RED BLOOD COUNT 4.27 X10'6 (4.70-6.10); RED CELL DISTRIBUTION WIDTH 16.1 % (11.5-14.5); WHITE BLOOD COUNT 8.7 X10'3 (4.5-11.0)
[2021-12-07 14:00] LABS: APTT 28 SECONDS (22-32)
[2021-12-07 14:04] LABS: ALBUMIN 3.5 G/DL (3.4-5.0); ANION GAP 10 (8-16); BLOOD UREA NITROGEN 37 MG/DL (7-18); BUN/CREATININE RATIO 24.8 (5.4-32.0); CALCIUM 8.9 MG/DL (8.5-10.1); CHLORIDE 98 MMOL/L (99-107); CREATININE 1.49 MG/DL (0.60-1.10); GLUCOSE 154 MG/DL (70-104); POTASSIUM 4.5 MMOL/L (3.5-5.1); SODIUM 130 MMOL/L (135-145); TOTAL CARBON DIOXIDE 22.4 MMOL/L (24-32); eGFR 48 ML/MIN
[2021-12-07] MEDS ORDERED: fentaNYL/PF 50MCG/1 ML 2ML syringe ONE (15:46)
[2021-12-07] MEDS ORDERED: midazolam 1 mg/ML 2ml injection ONE (15:46)
[2021-12-07] MEDS ORDERED: heparin 1,000 UNITS/NS 500ml 500 ML ONE (15:54)
[2021-12-07] MEDS ORDERED: LIDOcaine 1% (10mg/ml) 2ml vial ONE (15:55)
[2021-12-07 16:32] LABS: ISTAT Hct MIX 33 %PCV (42-52); ISTAT O2 SATURATION MIX VENOUS 55 % (60-80); ISTAT SOURCE VEN
[2021-12-07 16:35] VITALS: BP 120/74
[2021-12-07 16:50] VITALS: BP 122/90
[2021-12-07] MEDS ORDERED: HYDROcodone/acetaminophen 10/325mg tab PO PRN (17:00)
[2021-12-07] MEDS ORDERED: HYDROcodone/acetaminophen 5mg/325mg tablet PO PRN (17:00)
[2021-12-07 17:05] VITALS: BP 114/76
[2021-12-07 17:20] VITALS: BP 102/69
[2021-12-07 17:50] VITALS: BP 124/79
== END 2021-12-07 18:15 | disposition home or self-care (01) ==
LOC: SSTAY O 12:34
PROVIDERS: ATTEND Student in an Organized Health Care Education/Training Program
DX: I27.20 Pulmonary hypertension, unspecified (principal); Z79.899 Other long term (current) drug therapy; Z79.01 Long term (current) use of anticoagulants; G47.33 Obstructive sleep apnea (adult) (pediatric); Z91.041 Radiographic dye allergy status; Z98.890 Other specified postprocedural states
CPT/HCPCS: 36415; 80048; 80061; 82803; 85014; 85025; 85610; 85730; 93005; 93451; 99152; C1751; J1644; J2250; J3010; J3490; J7030; Q0163; A4620; A5120; A6258

== ENCOUNTER 2021-12-21 06:26 | Day surgery (SDC) | payer MEDICARE, SELFPAY ==
[~2021-12-21] VITALS: Ht 172.7 cm; Wt 121.1 kg
[2021-12-21] VITALS (8 sets, daily range): BP systolic 101–129; BP diastolic 64–76
[~2021-12-21 06:26] MED LIST changes: +DIPH-1055 PO; +PRED20TA PO
[2021-12-21] MEDS ORDERED: LIDOcaine 1% 30ml preserv. free vial SQ ONE (07:05)
[2021-12-21] MEDS: albumin 25% 100mL bottle x 1 IV PRN ×3 (08:48→10:18)
== END 2021-12-21 11:00 | disposition home or self-care (01) ==
LOC: SSTAY O 06:26
PROVIDERS: ATTEND Radiology Vascular & Interventional Radiology
DX: R18.8 Other ascites (principal); I27.21 Secondary pulmonary arterial hypertension; I10 Essential (primary) hypertension; E11.9 Type 2 diabetes mellitus without complications; Z72.89 Other problems related to lifestyle
CPT/HCPCS: 49083; P9047; A6258; A6449

== ENCOUNTER 2022-01-03 07:40 | Day surgery (SDC) | payer MEDICARE, SELFPAY ==
[~2022-01-03] VITALS: Ht 172.7 cm; Wt 116.7 kg
[2022-01-03] VITALS (12 sets, daily range): BP systolic 73–129; BP diastolic 50–70
[2022-01-03] MEDS: albumin 25% 100mL bottle x 1 IV PRN ×3 (08:59→09:59)
== END 2022-01-03 10:50 | disposition home or self-care (01) ==
LOC: SSTAY O 07:40
PROVIDERS: ATTEND Radiology Vascular & Interventional Radiology
DX: R18.8 Other ascites (principal); I27.21 Secondary pulmonary arterial hypertension; I10 Essential (primary) hypertension; E11.9 Type 2 diabetes mellitus without complications; Z72.89 Other problems related to lifestyle; Z79.899 Other long term (current) drug therapy; Z98.890 Other specified postprocedural states
CPT/HCPCS: 49083; P9047; A6258

== ENCOUNTER 2022-01-14 07:38 | Day surgery (SDC) | payer MEDICARE, SELFPAY ==
[2022-01-14] VITALS (10 sets, daily range): BP systolic 90–128; BP diastolic 54–81
[~2022-01-14] VITALS: Ht 170.2 cm; Wt 113.6 kg
[~2022-01-14 07:38] MED LIST changes: -PRED20TA PO
[2022-01-14] MEDS ORDERED: LIDOcaine 1% 30ml preserv. free vial IJ STA (08:42)
[2022-01-14] MEDS: albumin 25% 100mL bottle x 1 IV PRN ×2 (09:23→10:00)
== END 2022-01-14 11:00 | disposition home or self-care (01) ==
LOC: SSTAY O 07:38
PROVIDERS: ATTEND Radiology Vascular & Interventional Radiology
DX: R18.8 Other ascites (principal); I27.21 Secondary pulmonary arterial hypertension; I10 Essential (primary) hypertension; E11.9 Type 2 diabetes mellitus without complications; Z91.041 Radiographic dye allergy status; Z72.89 Other problems related to lifestyle; Z91.013 Allergy to seafood; Z79.899 Other long term (current) drug therapy; Z98.890 Other specified postprocedural states
CPT/HCPCS: 49083; J3490; P9047; A6258

== ENCOUNTER 2022-01-25 06:52 | Day surgery (SDC) | payer MEDICARE, SELFPAY ==
[~2022-01-25] VITALS: Ht 167.6 cm; Wt 107.3 kg
[2022-01-25] VITALS (10 sets, daily range): BP systolic 94–112; BP diastolic 51–73
[~2022-01-25 06:52] MED LIST changes: -DIPH-1055 PO; -MIDO5TAB4 PO
[2022-01-25] MEDS ORDERED: LIDOcaine 1% 30ml preserv. free vial SQ STA (07:13)
[2022-01-25] MEDS: albumin 25% 100mL bottle x 1 IV PRN ×2 (08:09→08:10)
== END 2022-01-25 11:15 | disposition home or self-care (01) ==
LOC: SSTAY O 06:52
PROVIDERS: ATTEND Radiology Vascular & Interventional Radiology
DX: R18.8 Other ascites (principal); I27.20 Pulmonary hypertension, unspecified; I10 Essential (primary) hypertension; E11.9 Type 2 diabetes mellitus without complications; Z72.89 Other problems related to lifestyle; Z79.899 Other long term (current) drug therapy
CPT/HCPCS: 49083; J3490; P9047; A6258; A6449

== ENCOUNTER 2022-02-04 06:59 | Day surgery (SDC) | payer MEDICARE, SELFPAY ==
[~2022-02-04] VITALS: Ht 172.7 cm; Wt 111.9 kg
[2022-02-04 07:15] VITALS: BP 90/68
[2022-02-04] MEDS ORDERED: LIDOcaine 1% 30ml preserv. free vial SQ STA (07:28)
[2022-02-04] MEDS: albumin 25% 100mL bottle x 1 IV PRN ×2 (08:39→08:40)
[2022-02-04 08:55] VITALS: BP 102/68
[2022-02-04 09:10] VITALS: BP 97/63
[2022-02-04 09:25] VITALS: BP 91/62
[2022-02-04 09:40] VITALS: BP 97/60
[2022-02-04 09:55] VITALS: BP 99/59
== END 2022-02-04 10:00 | disposition home or self-care (01) ==
LOC: SSTAY O 06:59
PROVIDERS: ATTEND Radiology Vascular & Interventional Radiology
DX: R18.8 Other ascites (principal); I10 Essential (primary) hypertension; E11.9 Type 2 diabetes mellitus without complications; I27.20 Pulmonary hypertension, unspecified; Z72.89 Other problems related to lifestyle; Z79.899 Other long term (current) drug therapy
CPT/HCPCS: 49083; J3490; P9047; A6258

== ENCOUNTER 2022-02-18 06:45 | Day surgery (SDC) | payer MEDICARE, SELFPAY ==
[2022-02-18] VITALS (8 sets, daily range): BP systolic 82–118; BP diastolic 47–80
[~2022-02-18] VITALS: Ht 170.2 cm; Wt 116.0 kg
[2022-02-18] MEDS ORDERED: LIDOcaine 1% 30ml preserv. free vial SQ STA (07:01)
[2022-02-18] MEDS: albumin 25% 100mL bottle x 1 IV PRN ×3 (08:09→10:20)
== END 2022-02-18 11:05 | disposition home or self-care (01) ==
LOC: SSTAY O 06:45
PROVIDERS: ATTEND Radiology Diagnostic Radiology
DX: R18.8 Other ascites (principal); I27.21 Secondary pulmonary arterial hypertension; E11.9 Type 2 diabetes mellitus without complications; J44.9 Chronic obstructive pulmonary disease, unspecified; Z91.013 Allergy to seafood; Z91.041 Radiographic dye allergy status; Z79.899 Other long term (current) drug therapy; Z98.890 Other specified postprocedural states
CPT/HCPCS: 49083; J3490; P9047; A6258

== ENCOUNTER 2022-03-11 06:23 | Day surgery (SDC) | payer MEDICARE, SELFPAY ==
[2022-03-11] VITALS (8 sets, daily range): BP systolic 89–153; BP diastolic 39–78
[~2022-03-11] VITALS: Ht 172.7 cm; Wt 116.6 kg
[2022-03-11] MEDS ORDERED: LIDOcaine 1% 30ml preserv. free vial SQ STA (06:31)
[2022-03-11] MEDS: albumin 25% 100mL bottle x 1 IV PRN ×2 (08:43→09:10)
== END 2022-03-11 10:05 | disposition home or self-care (01) ==
LOC: SSTAY O 06:23
PROVIDERS: ATTEND Radiology Vascular & Interventional Radiology
DX: R18.8 Other ascites (principal); R14.0 Abdominal distension (gaseous); I10 Essential (primary) hypertension; E11.9 Type 2 diabetes mellitus without complications; I27.20 Pulmonary hypertension, unspecified; Z72.89 Other problems related to lifestyle; Z79.899 Other long term (current) drug therapy
CPT/HCPCS: 49083; J3490; P9047; A6258; A6449

== ENCOUNTER 2022-03-25 06:30 | Day surgery (SDC) | payer MEDICARE, SELFPAY ==
[2022-03-25] VITALS (9 sets, daily range): BP systolic 87–122; BP diastolic 51–87
[~2022-03-25] VITALS: Ht 170.2 cm; Wt 119.5 kg
[~2022-03-25 06:30] MED LIST changes: +LIDOcaine 1% 30ml preserv. free vial SQ STA
[2022-03-25] MEDS ORDERED: LIDOcaine 1% 30ml preserv. free vial SQ STA (06:32)
[2022-03-25] MEDS ORDERED: normal saline 1000ml 1,000 ML IV PRN (06:45)
[2022-03-25] MEDS: albumin 25% 100mL bottle x 1 IV PRN ×3 (08:05→09:35)
== END 2022-03-25 10:15 | disposition home or self-care (01) ==
LOC: SSTAY O 06:30
PROVIDERS: ATTEND Radiology Diagnostic Radiology
DX: R18.8 Other ascites (principal); R14.0 Abdominal distension (gaseous); I27.20 Pulmonary hypertension, unspecified; I10 Essential (primary) hypertension; E11.9 Type 2 diabetes mellitus without complications; Z72.89 Other problems related to lifestyle; Z88.8 Allergy status to other drugs, medicaments and biological substances; Z91.013 Allergy to seafood; Z79.899 Other long term (current) drug therapy; Z98.890 Other specified postprocedural states
CPT/HCPCS: 49083; A6223; J3490; P9047; A6258; A6449

== ENCOUNTER 2022-04-05 06:42 | Day surgery (SDC) | payer MEDICARE, SELFPAY ==
[2022-04-05] VITALS (9 sets, daily range): BP systolic 88–108; BP diastolic 60–72
[~2022-04-05] VITALS: Ht 170.2 cm; Wt 114.2 kg
[~2022-04-05 06:42] MED LIST changes: -LIDOcaine 1% 30ml preserv. free vial SQ STA
[2022-04-05] MEDS ORDERED: LIDOcaine 1% 30ml preserv. free vial SQ STA (07:04)
[2022-04-05] MEDS: albumin 25% 100mL bottle x 1 IV PRN ×2 (07:56→08:54)
== END 2022-04-05 10:00 | disposition home or self-care (01) ==
LOC: SSTAY O 06:42
PROVIDERS: ATTEND Radiology Diagnostic Radiology
DX: R18.8 Other ascites (principal); R14.0 Abdominal distension (gaseous); I27.20 Pulmonary hypertension, unspecified; I10 Essential (primary) hypertension; E11.9 Type 2 diabetes mellitus without complications; Z72.89 Other problems related to lifestyle; Z79.899 Other long term (current) drug therapy; Z98.890 Other specified postprocedural states
CPT/HCPCS: 49083; P9047; A6258; A6449; J3490

== ENCOUNTER 2022-04-14 06:52 | Day surgery (SDC) | payer MEDICARE, SELFPAY ==
[~2022-04-14] VITALS: Ht 170.2 cm; Wt 112.7 kg
[2022-04-14] VITALS (8 sets, daily range): BP systolic 95–133; BP diastolic 53–76
[~2022-04-14 06:52] MED LIST changes: +LIDOcaine 1% 30ml preserv. free vial IJ STA
[2022-04-14] MEDS: albumin 25% 100mL bottle x 1 IV PRN ×2 (08:58→09:17)
== END 2022-04-14 10:20 | disposition home or self-care (01) ==
LOC: SSTAY O 06:52
PROVIDERS: ATTEND Radiology Diagnostic Radiology
DX: R18.8 Other ascites (principal); R14.0 Abdominal distension (gaseous); I10 Essential (primary) hypertension; E11.9 Type 2 diabetes mellitus without complications; I27.20 Pulmonary hypertension, unspecified; Z72.89 Other problems related to lifestyle; Z91.013 Allergy to seafood; Z88.8 Allergy status to other drugs, medicaments and biological substances; Z79.899 Other long term (current) drug therapy; Z98.890 Other specified postprocedural states
CPT/HCPCS: 49083; A6223; P9047; A6258; A6449

== ENCOUNTER → 2022-04-22 | Day surgery (SDC) | payer MEDICARE, SELFPAY ==
[~2022-04-22] VITALS: Ht 167.6 cm; Wt 110.8 kg
[~2022-04-22] MED LIST changes: -LIDOcaine 1% 30ml preserv. free vial IJ STA; +LIDOcaine 1% 30ml preserv. free vial SQ STA
[2022-04-22] MEDS: albumin 25% 100mL bottle x 1 IV PRN (09:03)
== END | disposition home or self-care (01) ==
LOC: SSTAY O 07:24
PROVIDERS: ATTEND Radiology Vascular & Interventional Radiology
DX: R18.8 Other ascites (principal); R14.0 Abdominal distension (gaseous); I10 Essential (primary) hypertension; I27.20 Pulmonary hypertension, unspecified; E11.9 Type 2 diabetes mellitus without complications; Z72.89 Other problems related to lifestyle; Z79.899 Other long term (current) drug therapy
CPT/HCPCS: 49083; J3490; P9047; A6258; A6449

== ENCOUNTER 2022-04-27 12:02 | Outpatient (CLI) | payer MEDICARE, MEDICAID, SELFPAY ==
[~2022-04-27 12:02] MED LIST changes: -LIDOcaine 1% 30ml preserv. free vial SQ STA
== END 2022-04-27 23:59 | disposition home or self-care (01) ==
LOC: CARD DIAG 12:02
PROVIDERS: ATTEND Internal Medicine
DX: I08.1 Rheumatic disorders of both mitral and tricuspid valves (principal); I27.20 Pulmonary hypertension, unspecified
CPT/HCPCS: 93306; 94618

== ENCOUNTER 2022-05-02 06:54 | Day surgery (SDC) | payer MEDICARE, SELFPAY ==
[2022-05-02] VITALS (10 sets, daily range): BP systolic 86–96; BP diastolic 57–67
[~2022-05-02] VITALS: Ht 170.2 cm; Wt 119.3 kg
[2022-05-02] MEDS ORDERED: LIDOcaine 1% 30ml preserv. free vial SQ STA (07:56)
[2022-05-02] MEDS: albumin 25% 100mL bottle x 1 IV PRN ×2 (08:53→09:44)
== END 2022-05-02 10:45 | disposition home or self-care (01) ==
LOC: SSTAY O 06:54
PROVIDERS: ATTEND Radiology Diagnostic Radiology
DX: R18.8 Other ascites (principal); R14.0 Abdominal distension (gaseous); E11.9 Type 2 diabetes mellitus without complications; I10 Essential (primary) hypertension; I27.20 Pulmonary hypertension, unspecified; Z72.89 Other problems related to lifestyle; Z88.8 Allergy status to other drugs, medicaments and biological substances; Z79.899 Other long term (current) drug therapy; Z98.890 Other specified postprocedural states
CPT/HCPCS: 49083; J3490; P9047; A6258; A6449

== ENCOUNTER 2022-05-12 06:46 | Day surgery (SDC) | payer MEDICARE, MEDICAID ==
[~2022-05-12] VITALS: Ht 170.2 cm; Wt 114.4 kg
[2022-05-12] VITALS (7 sets, daily range): BP systolic 90–98; BP diastolic 52–70
[2022-05-12] MEDS ORDERED: LIDOcaine 1% 30ml preserv. free vial SQ STA (07:26)
[2022-05-12] MEDS: albumin 25% 100mL bottle x 1 IV PRN ×2 (07:39→07:40)
== END 2022-05-12 10:00 | disposition home or self-care (01) ==
LOC: SSTAY O 06:46
PROVIDERS: ATTEND Radiology Vascular & Interventional Radiology
DX: R18.8 Other ascites (principal); I10 Essential (primary) hypertension; E11.9 Type 2 diabetes mellitus without complications; I27.20 Pulmonary hypertension, unspecified; Z72.89 Other problems related to lifestyle
CPT/HCPCS: 49083; J3490; P9047; A6258; A6449

== ENCOUNTER 2022-05-23 07:02 | Day surgery (SDC) | payer MEDICARE, MEDICAID ==
[2022-05-23] VITALS (7 sets, daily range): BP systolic 89–98; BP diastolic 58–65
[~2022-05-23] VITALS: Ht 170.2 cm; Wt 115.5 kg
[2022-05-23] MEDS ORDERED: LIDOcaine 1% 30ml preserv. free vial SQ STA (07:16)
[2022-05-23] MEDS: albumin 25% 100mL bottle x 1 IV PRN ×2 (09:28→09:57)
== END 2022-05-23 11:00 | disposition home or self-care (01) ==
LOC: SSTAY O 07:02
PROVIDERS: ATTEND Radiology Diagnostic Radiology
DX: R18.8 Other ascites (principal); I27.21 Secondary pulmonary arterial hypertension; E11.9 Type 2 diabetes mellitus without complications; Z91.041 Radiographic dye allergy status; Z88.8 Allergy status to other drugs, medicaments and biological substances; I10 Essential (primary) hypertension; Z79.899 Other long term (current) drug therapy; Z98.890 Other specified postprocedural states
CPT/HCPCS: 49083; A6223; P9047; A6258; A6449

== ENCOUNTER 2022-06-03 07:13 | Day surgery (SDC) | payer MEDICARE, MEDICAID ==
[2022-06-03] VITALS (7 sets, daily range): BP systolic 91–98; BP diastolic 69–74
[~2022-06-03] VITALS: Ht 170.2 cm; Wt 113.8 kg
[2022-06-03] MEDS ORDERED: LIDOcaine 1% 30ml preserv. free vial SQ STA (07:54)
[2022-06-03] MEDS: albumin 25% 100mL bottle x 1 IV PRN ×2 (08:26→09:03)
== END 2022-06-03 10:31 | disposition home or self-care (01) ==
LOC: SSTAY O 07:13
PROVIDERS: ATTEND Radiology Vascular & Interventional Radiology
DX: R18.8 Other ascites (principal); R14.0 Abdominal distension (gaseous); I10 Essential (primary) hypertension; E11.9 Type 2 diabetes mellitus without complications; I27.20 Pulmonary hypertension, unspecified; Z72.89 Other problems related to lifestyle; Z88.8 Allergy status to other drugs, medicaments and biological substances; Z79.899 Other long term (current) drug therapy; Z96.41 Presence of insulin pump (external) (internal)
CPT/HCPCS: 49083; A6223; P9047; A6258; A6449

== ENCOUNTER 2022-06-14 07:13 | Day surgery (SDC) | payer MEDICARE, MEDICAID ==
[2022-06-14] VITALS (7 sets, daily range): BP systolic 90–128; BP diastolic 47–69
[~2022-06-14] VITALS: Ht 170.2 cm; Wt 116.2 kg
[2022-06-14] MEDS ORDERED: LIDOcaine 1% 30ml preserv. free vial SQ STA (07:26)
[2022-06-14] MEDS ORDERED: LIDOcaine 1%/PF 5ML 10 MG/ML VIAL SQ ONE (07:45)
[2022-06-14] MEDS: albumin 25% 100mL bottle x 1 IV PRN ×2 (08:27→08:28)
== END 2022-06-14 10:00 | disposition home or self-care (01) ==
LOC: SSTAY O 07:13
PROVIDERS: ATTEND Radiology Vascular & Interventional Radiology
DX: R18.8 Other ascites (principal); R14.0 Abdominal distension (gaseous); I27.21 Secondary pulmonary arterial hypertension; I10 Essential (primary) hypertension; E11.9 Type 2 diabetes mellitus without complications; Z72.89 Other problems related to lifestyle; Z91.013 Allergy to seafood; Z79.899 Other long term (current) drug therapy; Z91.041 Radiographic dye allergy status
CPT/HCPCS: 49083; A6223; P9047; A6258; A6449

== ENCOUNTER 2022-06-24 07:15 | Day surgery (SDC) | payer MEDICARE, MEDICAID ==
[~2022-06-24] VITALS: Ht 170.2 cm; Wt 112.5 kg
[2022-06-24] MEDS ORDERED: LIDOcaine 1%/PF 5ML 10 MG/ML VIAL SQ ONE (07:35)
[2022-06-24 07:45] VITALS: BP 101/70
[2022-06-24] MEDS: albumin 25% 100mL bottle x 1 IV PRN ×2 (08:50→08:52)
[2022-06-24 09:15] VITALS: BP 112/59
[2022-06-24 09:30] VITALS: BP 105/70
[2022-06-24 09:45] VITALS: BP 98/64
[2022-06-24 10:00] VITALS: BP 88/69
[2022-06-24 10:15] VITALS: BP 108/66
== END 2022-06-24 10:15 | disposition home or self-care (01) ==
LOC: SSTAY O 07:15
PROVIDERS: ATTEND Radiology Vascular & Interventional Radiology
DX: R18.8 Other ascites (principal); R14.0 Abdominal distension (gaseous); E11.9 Type 2 diabetes mellitus without complications; I10 Essential (primary) hypertension; I27.21 Secondary pulmonary arterial hypertension; Z72.89 Other problems related to lifestyle; Z98.890 Other specified postprocedural states; Z91.041 Radiographic dye allergy status; Z79.899 Other long term (current) drug therapy; Z96.41 Presence of insulin pump (external) (internal)
CPT/HCPCS: 49083; A6223; J3490; P9047; A6258; A6449

== ENCOUNTER → 2022-07-05 | Day surgery (SDC) | payer MEDICARE, MEDICAID ==
[2022-07-05] VITALS (8 sets, daily range): BP systolic 83–100; BP diastolic 60–69
[~2022-07-05] VITALS: Ht 170.2 cm; Wt 118.5 kg
[~2022-07-05] MED LIST changes: +LIDOcaine 1% 30ml preserv. free vial SQ STA
[2022-07-05] MEDS: albumin 25% 100mL bottle x 1 IV PRN ×2 (08:28→09:11)
== END | disposition home or self-care (01) ==
LOC: SSTAY O 07:19
PROVIDERS: ATTEND Radiology Vascular & Interventional Radiology
DX: R18.8 Other ascites (principal); R14.0 Abdominal distension (gaseous); I10 Essential (primary) hypertension; I27.21 Secondary pulmonary arterial hypertension; E11.9 Type 2 diabetes mellitus without complications; Z72.89 Other problems related to lifestyle; Z98.890 Other specified postprocedural states; Z91.041 Radiographic dye allergy status; Z79.899 Other long term (current) drug therapy; Z96.41 Presence of insulin pump (external) (internal)
CPT/HCPCS: 49083; A6223; J3490; P9047; A6258

== ENCOUNTER 2022-07-25 07:14 | Day surgery (SDC) | payer MEDICARE, MEDICAID ==
[2022-07-25] VITALS (9 sets, daily range): BP systolic 88–124; BP diastolic 57–69
[~2022-07-25] VITALS: Ht 170.2 cm; Wt 115.8 kg
[~2022-07-25 07:14] MED LIST changes: -LIDOcaine 1% 30ml preserv. free vial SQ STA
[2022-07-25] MEDS ORDERED: LIDOcaine 1%/PF 5ML 10 MG/ML VIAL SQ ONE (07:20)
[2022-07-25] MEDS ORDERED: albumin (human) 25% 100ml IV 100 ML IV ONE ×2 (08:30→08:40)
== END 2022-07-25 09:45 | disposition home or self-care (01) ==
LOC: SSTAY O 07:14
PROVIDERS: ATTEND Radiology Vascular & Interventional Radiology
DX: R18.8 Other ascites (principal); R14.0 Abdominal distension (gaseous); I10 Essential (primary) hypertension; E11.9 Type 2 diabetes mellitus without complications; I27.21 Secondary pulmonary arterial hypertension; Z96.41 Presence of insulin pump (external) (internal); Z72.89 Other problems related to lifestyle; Z98.890 Other specified postprocedural states; Z79.899 Other long term (current) drug therapy
CPT/HCPCS: 49083; A6223; C1729; J3490; P9047; A6258; A6449

== ENCOUNTER 2022-08-03 08:10 | Day surgery (SDC) | payer MEDICARE, MEDICAID ==
[2022-08-03] VITALS (9 sets, daily range): BP systolic 93–113; BP diastolic 53–80
[~2022-08-03] VITALS: Ht 170.2 cm; Wt 115.8 kg
[2022-08-03] MEDS ORDERED: AMOX-100 PO (08:27)
[2022-08-03] MEDS ORDERED: LIDOcaine 1% 30ml preserv. free vial SQ ONE (08:45)
[2022-08-03] MEDS: albumin 25% 100mL bottle x 1 IV PRN ×2 (11:02→11:03)
== END 2022-08-03 12:30 | disposition home or self-care (01) ==
LOC: SSTAY O 08:10
PROVIDERS: ATTEND Radiology Diagnostic Radiology
DX: R18.8 Other ascites (principal); I27.21 Secondary pulmonary arterial hypertension; I10 Essential (primary) hypertension; E11.9 Type 2 diabetes mellitus without complications; Z98.890 Other specified postprocedural states; Z79.899 Other long term (current) drug therapy; Z72.89 Other problems related to lifestyle; Z91.041 Radiographic dye allergy status
CPT/HCPCS: 49083; A6223; C1729; J3490; P9047; A6258; A6449

== ENCOUNTER 2022-08-12 07:15 | Day surgery (SDC) | payer MEDICARE, MEDICAID ==
[~2022-08-12] VITALS: Ht 170.2 cm; Wt 118.6 kg
[2022-08-12] VITALS (7 sets, daily range): BP systolic 83–107; BP diastolic 45–72
[~2022-08-12 07:15] MED LIST changes: +AMOX-100 PO
[2022-08-12] MEDS: albumin 25% 100mL bottle x 1 IV PRN ×2 (09:29→09:52)
== END 2022-08-12 10:55 | disposition home or self-care (01) ==
LOC: SSTAY O 07:15
PROVIDERS: ATTEND Radiology Diagnostic Radiology
DX: R18.8 Other ascites (principal); I27.21 Secondary pulmonary arterial hypertension; I10 Essential (primary) hypertension; E11.9 Type 2 diabetes mellitus without complications; Z72.89 Other problems related to lifestyle; Z98.890 Other specified postprocedural states; Z91.041 Radiographic dye allergy status; Z79.899 Other long term (current) drug therapy
CPT/HCPCS: 49083; C1729; J3490; P9047; A6258

== ENCOUNTER 2022-08-22 06:37 | Day surgery (SDC) | payer MEDICARE, MEDICAID ==
[2022-08-22] VITALS (7 sets, daily range): BP systolic 92–106; BP diastolic 63–71
[~2022-08-22] VITALS: Ht 170.2 cm; Wt 121.3 kg
[2022-08-22] MEDS: albumin 25% 100mL bottle x 1 IV PRN ×2 (09:18→09:26)
== END 2022-08-22 10:30 | disposition home or self-care (01) ==
LOC: SSTAY O 06:37
PROVIDERS: ATTEND Radiology Vascular & Interventional Radiology
DX: R18.8 Other ascites (principal); R14.0 Abdominal distension (gaseous); I10 Essential (primary) hypertension; I27.21 Secondary pulmonary arterial hypertension; E11.9 Type 2 diabetes mellitus without complications; Z72.89 Other problems related to lifestyle; Z91.041 Radiographic dye allergy status; Z91.013 Allergy to seafood; Z98.890 Other specified postprocedural states; Z79.899 Other long term (current) drug therapy
CPT/HCPCS: 49083; A6223; C1729; J3490; P9047; A6258

== ENCOUNTER 2022-09-12 07:15 | Day surgery (SDC) | payer MEDICARE, MEDICAID ==
[~2022-09-12] VITALS: Ht 170.2 cm; Wt 118.3 kg
[2022-09-12] VITALS (9 sets, daily range): BP systolic 90–105; BP diastolic 65–92; PULSE 72–108; RESP 16–18; TEMP 97.2; O2SAT 92–95
[2022-09-12] MEDS ORDERED: LIDOcaine 1%/PF 5ML 10 MG/ML VIAL SQ ONE (07:50)
[2022-09-12] MEDS: albumin 25% 100mL bottle x 1 IV PRN ×3 (08:26→10:13)
== END 2022-09-12 10:45 | disposition home or self-care (01) ==
LOC: SSTAY O 07:15
PROVIDERS: ATTEND Radiology Vascular & Interventional Radiology
DX: R18.8 Other ascites (principal); R14.0 Abdominal distension (gaseous); I27.21 Secondary pulmonary arterial hypertension; E11.9 Type 2 diabetes mellitus without complications; I10 Essential (primary) hypertension; Z91.041 Radiographic dye allergy status; Z72.89 Other problems related to lifestyle; Z79.899 Other long term (current) drug therapy
CPT/HCPCS: 49083; A6223; C1729; J3490; P9047; A6258; A6449

== ENCOUNTER 2022-09-23 07:16 | Day surgery (SDC) | payer MEDICARE, MEDICAID ==
[~2022-09-23] VITALS: Ht 170.2 cm; Wt 121.6 kg
[2022-09-23] VITALS (11 sets, daily range): BP systolic 95–104; BP diastolic 56–72; PULSE 96–108; RESP 12–16; TEMP 97.6; O2SAT 93–97
[~2022-09-23 07:16] MED LIST changes: -AMOX-100 PO
[2022-09-23] MEDS: albumin 25% 100mL bottle x 1 IV PRN ×3 (08:22→09:47)
[2022-09-23 10:11] LABS: ALBUMIN,BODY FLUID 1.6 G/DL; TOTAL PROTEIN,BODY FLUID 2.9 G/DL
[2022-09-23 10:39] LABS: LYMPHOCYTES,BODY FLUID 51 %; MONOCYTES,BODY FLUID 40 %; NEUTROPHILS,BODY FLUID 9 %
[2022-09-23 10:40] LABS: BF RBC COUNT 258 /CU MM; BF WBC COUNT 130 /CU MM (0-1000); BFAPPEAR CLEAR; BFCOLOR YELLOW; BFVOLUME 55 ML
== END 2022-09-23 11:30 | disposition home or self-care (01) ==
LOC: SSTAY O 07:16
PROVIDERS: ATTEND Radiology Vascular & Interventional Radiology
DX: R18.8 Other ascites (principal); R14.0 Abdominal distension (gaseous); I10 Essential (primary) hypertension; E11.9 Type 2 diabetes mellitus without complications; I27.29 Other secondary pulmonary hypertension; Z72.89 Other problems related to lifestyle; Z91.041 Radiographic dye allergy status; Z91.013 Allergy to seafood; Z79.899 Other long term (current) drug therapy; Z98.890 Other specified postprocedural states
CPT/HCPCS: 49083; 82042; 84157; 89051; A6223; C1729; J3490; P9047; A6258; A6449

== ENCOUNTER 2022-09-26 13:26 | Outpatient (CLI) | payer MEDICARE, MEDICAID | END 2022-09-26 23:59 | disposition home or self-care (01) | LOC: CARD DIAG 13:26 → RT 23:59 | PROVIDERS: ATTEND Internal Medicine | DX: I08.8 Other rheumatic multiple valve diseases (principal); R06.02 Shortness of breath; I27.20 Pulmonary hypertension, unspecified | CPT/HCPCS: 93308; 94618 ==

== ENCOUNTER 2022-10-03 07:21 | Day surgery (SDC) | payer MEDICARE, MEDICAID ==
[~2022-10-03] VITALS: Ht 170.2 cm; Wt 120.1 kg
[2022-10-03] VITALS (9 sets, daily range): BP systolic 94–116; BP diastolic 63–75; PULSE 91–107; RESP 14–17; TEMP 97.7; O2SAT 93–96
[2022-10-03] MEDS ORDERED: GABA-530 PO (07:39)
[2022-10-03] MEDS: albumin 25% 100mL bottle x 1 IV PRN ×3 (08:16→08:18)
== END 2022-10-03 10:45 | disposition home or self-care (01) ==
LOC: SSTAY O 07:21
PROVIDERS: ATTEND Radiology Diagnostic Radiology
DX: R18.8 Other ascites (principal); R14.0 Abdominal distension (gaseous); I27.29 Other secondary pulmonary hypertension; I10 Essential (primary) hypertension; E11.9 Type 2 diabetes mellitus without complications; Z98.890 Other specified postprocedural states; Z72.89 Other problems related to lifestyle; Z91.041 Radiographic dye allergy status; Z79.899 Other long term (current) drug therapy
CPT/HCPCS: 49083; A6223; C1729; J3490; P9047; A6258; A6449

== ENCOUNTER 2022-10-13 06:55 | Day surgery (SDC) | payer MEDICARE, MEDICAID ==
[~2022-10-13] VITALS: Ht 170.2 cm; Wt 116.3 kg
[2022-10-13] VITALS (7 sets, daily range): BP systolic 87–129; BP diastolic 59–76; PULSE 100–107; RESP 12–18; TEMP 97.7; O2SAT 94–97
[~2022-10-13 06:55] MED LIST changes: +GABA-530 PO
[2022-10-13] MEDS ORDERED: RIOC1.5T PO (07:21)
[2022-10-13] MEDS: albumin 25% 100mL bottle x 1 IV PRN ×2 (08:28→09:12)
== END 2022-10-13 10:00 | disposition home or self-care (01) ==
LOC: SSTAY O 06:55
PROVIDERS: ATTEND Radiology Diagnostic Radiology
DX: R18.8 Other ascites (principal); R14.0 Abdominal distension (gaseous); I10 Essential (primary) hypertension; E11.9 Type 2 diabetes mellitus without complications; I27.20 Pulmonary hypertension, unspecified; Z98.890 Other specified postprocedural states; Z91.041 Radiographic dye allergy status; Z72.89 Other problems related to lifestyle; Z79.899 Other long term (current) drug therapy
CPT/HCPCS: 49083; A6223; C1729; J3490; P9047; A6258; A6449

== ENCOUNTER 2022-10-24 07:19 | Day surgery (SDC) | payer MEDICARE, MEDICAID ==
[~2022-10-24] VITALS: Ht 170.2 cm; Wt 117.7 kg
[2022-10-24] VITALS (11 sets, daily range): BP systolic 85–122; BP diastolic 46–62; PULSE 65–109; RESP 16; TEMP 97.7; O2SAT 93–96
[~2022-10-24 07:19] MED LIST changes: +RIOC1.5T PO; -RIOC2.5T PO
[2022-10-24] MEDS: albumin 25% 100mL bottle x 1 IV PRN ×3 (08:09→09:54)
== END 2022-10-24 11:10 | disposition home or self-care (01) ==
LOC: SSTAY O 07:19
PROVIDERS: ATTEND Radiology Vascular & Interventional Radiology
DX: R18.8 Other ascites (principal); R14.0 Abdominal distension (gaseous); I27.21 Secondary pulmonary arterial hypertension; I10 Essential (primary) hypertension; E11.9 Type 2 diabetes mellitus without complications; Z72.89 Other problems related to lifestyle; Z88.8 Allergy status to other drugs, medicaments and biological substances; Z91.013 Allergy to seafood; Z79.899 Other long term (current) drug therapy
CPT/HCPCS: 49083; A6223; C1729; J3490; P9047; A6258; A6449

== ENCOUNTER 2022-11-24 07:23 | Day surgery (SDC) | payer MEDICARE, MEDICAID ==
[~2022-11-24] VITALS: Ht 170.2 cm; Wt 114.9 kg
[2022-11-24] VITALS (7 sets, daily range): BP systolic 83–103; BP diastolic 52–72; PULSE 91–104; RESP 15–17; TEMP 98.3; O2SAT 93–97
[~2022-11-24 07:23] MED LIST changes: -POTA-207 PO
[2022-11-24] MEDS: albumin 25% 100mL bottle x 1 IV PRN ×2 (09:42→10:33)
== END 2022-11-24 11:30 | disposition home or self-care (01) ==
LOC: SSTAY O 07:23
PROVIDERS: ATTEND Radiology Diagnostic Radiology
DX: R18.8 Other ascites (principal); I10 Essential (primary) hypertension; E11.9 Type 2 diabetes mellitus without complications; I27.21 Secondary pulmonary arterial hypertension; Z72.89 Other problems related to lifestyle; Z98.890 Other specified postprocedural states; Z91.041 Radiographic dye allergy status; Z91.013 Allergy to seafood; Z79.899 Other long term (current) drug therapy
CPT/HCPCS: 49083; 82948; C1729; J3490; P9047; A6258; A6449

== ENCOUNTER 2022-12-05 07:07 | Day surgery (SDC) | payer MEDICARE, MEDICAID ==
[~2022-12-05] VITALS: Ht 170.2 cm; Wt 118.6 kg
[2022-12-05] VITALS (9 sets, daily range): BP systolic 87–117; BP diastolic 55–73; PULSE 84–102; RESP 16–20; TEMP 97.7; O2SAT 92–96
[2022-12-05] MEDS ORDERED: MIDO5TAB4 PO (07:29)
[2022-12-05] MEDS ORDERED: normal saline 1000ml 1,000 ML IV PRN (07:40)
[2022-12-05] MEDS: albumin 25% 100mL bottle x 1 IV PRN ×3 (08:29→10:51)
== END 2022-12-05 11:08 | disposition home or self-care (01) ==
LOC: SSTAY O 07:07
PROVIDERS: ATTEND Radiology Vascular & Interventional Radiology
DX: R18.8 Other ascites (principal); R14.0 Abdominal distension (gaseous)
CPT/HCPCS: 49083; A6223; C1729; J3490; P9047; A6258; A6449

== ENCOUNTER 2022-12-07 08:38 | Outpatient (CLI) | payer MEDICARE, MEDICAID ==
[~2022-12-07] VITALS: Ht 170.2 cm; Wt 106.6 kg
[~2022-12-07 08:38] MED LIST changes: +MIDO5TAB4 PO
[2022-12-07] MEDS ORDERED: albuterol 2.5 MG/3 ML nebule NEB PRN (09:05)
== END 2022-12-07 23:59 | disposition home or self-care (01) ==
LOC: RAD 08:38
PROVIDERS: ATTEND Internal Medicine
DX: R18.8 Other ascites (principal); I27.20 Pulmonary hypertension, unspecified; R06.02 Shortness of breath
CPT/HCPCS: 71250; 94010; 94727; 94729

== ENCOUNTER 2022-12-23 06:52 | Day surgery (SDC) | payer MEDICARE, MEDICAID ==
[~2022-12-23] VITALS: Ht 170.2 cm; Wt 119.5 kg
[2022-12-23] VITALS (9 sets, daily range): BP systolic 79–111; BP diastolic 51–70; PULSE 90–104; RESP 18; TEMP 97.5; O2SAT 92–99
[2022-12-23] MEDS: albumin 25% 100mL bottle x 1 IV PRN ×2 (08:19→09:09)
== END 2022-12-23 10:10 | disposition home or self-care (01) ==
LOC: SSTAY O 06:52
PROVIDERS: ATTEND Radiology Vascular & Interventional Radiology
DX: R18.8 Other ascites (principal); R14.0 Abdominal distension (gaseous); I27.21 Secondary pulmonary arterial hypertension; I10 Essential (primary) hypertension; E11.9 Type 2 diabetes mellitus without complications; Z91.013 Allergy to seafood; Z91.041 Radiographic dye allergy status; Z98.890 Other specified postprocedural states; Z79.899 Other long term (current) drug therapy
CPT/HCPCS: 49083; A6223; C1729; P9047; 92960; A6258; A6449